=== PATIENT | female | born 1985 | race African-American/Black ===

== ENCOUNTER 2017-04-09 08:10 | Observation (INO) ==
[2017-04-09] MEDS ORDERED: LACTATED RINGERS 1,000 ML IV STA (08:28)
[2017-04-09] MEDS ORDERED: ONDANSETRON 4 MG/2 ML VIAL IV STA (08:28)
[2017-04-09] MEDS ORDERED: HYDROmorphone 2 MG/1 ML VIAL IV STA (08:28)
[2017-04-09] MEDS ORDERED: HYDROmorphone 2 MG/1 ML VIAL ONE ×3 (08:32→16:02)
[2017-04-09] MEDS ORDERED: ONDANSETRON 4 MG/2 ML VIAL ONE ×3 (08:33→16:02)
[2017-04-09 08:35] LABS: Basophils % 0.3 % (0.0-0.8); Eosinophils # 0.1 10*3/uL (0.0-0.87); Eosinophils % 0.8 % (0.00-10.9); Hematocrit 38.4 VOL% (35.7-47.0); Hemoglobin 12.7 GM/DL (12.0-16.0); Immature Granulocytes % 1.2 %; Immature Granulocytes Absolute 0.14 #; Lymphocytes # 2.7 10*3/uL (1.4-4.0); Lymphocytes % 22.9 % (21.3-54.2); Mean Corpuscular HGB Conc 33.1 GM/DL (32-36); Mean Corpuscular Hemoglobin 27 PG (27-34); Mean Corpuscular Volume 80.3 FL (87-102); Mean Platelet Volume 9.7 FL (9.6-12.0); Monocytes # 0.7 10*3/uL (0.11-0.8); Monocytes % 6.2 % (1.7-12.7); Neutrophils # 8.1 10*3/uL (1.4-7.4); Neutrophils % 68.6 % (38.7-73.9); Platelet Count 327 T/CUMM (130-400); Red Blood Count 4.78 MC/CUMM (3.8-5.5); White Blood Count 11.8 T/CUMM (4-12)
[2017-04-09 08:42] LABS: PT Patient Result 10.6 SECS
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
[2017-04-09 08:54] LABS: Alanine Aminotransferase 23 U/L (13-56); Albumin 3.7 G/DL (3.4-5.0); Alkaline Phosphatase 94 U/L (45-117); Amylase 51 U/L (25-115); Aspartate Amino Transferase 15 U/L (0-37); Blood Urea Nitrogen 10 MG/DL (7-18); Calcium 9.3 MG/DL (8.5-10.1); Glucose 116 MG/DL (74-106); Osmolality,Calculated 278.4 MOS/KG (273-304); Potassium 3.9 MMOL/L (3.5-5.1); Sodium 140 MMOL/L (136-145); Total Protein 7.1 G/DL (6.4-8.3)
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
--- NOTE | 2017-04-09 09:54 | CT Report ---
Exam: CT scan of brain without contrast Date: 04/09/2017 Indication: Head injury Comparison: 05/16/2016 Patient's classification: Emergency department Technical: Images were obtained from the skull base to the vertex without the use of intravenous contrast. Dose reduction was performed with decreasing kv and mA and automated exposure Total DLP: 460.6 mGy*cm Findings: Extensive soft tissue laceration with some debris present over the frontal calvarium and laceration present. The brainstem, cerebellum and cerebral hemispheres are intact. The ventricles are unremarkable. The paranasal sinuses globes and sella are intact. Impression: 1. Extensive soft tissue injury over the frontal right parietal scalp with some foreign body debris present. 2. No acute intracranial hemorrhage infarction or mass effect. PROCEDURE INTERPRETED AT [facility] DEPARTMENT OF RADIOLOGY Final Report Signed by: Dr. Eleazar Coker
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
--- NOTE | 2017-04-09 10:02 | CT Report ---
Exam:CT chest w con Date:04/09/2017 8:29 AM Indication: Chest Abdominal pelvic pain injury Comparison: None Technical: Images were obtained from the thoracic inlet through the lung bases with 100 cc of contrast. Axial sagittal and coronal imaging was available for review. Dose reduction was performed with decreasing kv and mA and automated exposure Total DLP: 4505.4 mGy*cm Findings: The thyroid gland, trachea and esophagus are unremarkable. The anterior middle and posterior mediastinum are intact. The heart and pulmonary artery are unremarkable. Aorta is unremarkable. The lungs are clear without infiltrates or effusions. The bony structures are unremarkable within the region of the ribs and sternum thoracic spine will be described separately Impression: 1. No obvious pneumothorax pulmonary contusion focal mass lesion Exam: CT abdomen pelvis w con Date: 04/09/2017 8:29 AM Comparison: None Indication: Chest abdomen pelvic pain Total DLP: As above mGy*cm Technical: No oral contrast was administered Images were obtained from the lung bases to the iliac crest continuation through the pelvis with 100 cc of Omnipaque 350 with axial sagittal coronal imaging available for review. Dose reduction was performed with decreasing kv and mA and automated exposure Findings: Liver and Spleen: Unremarkable Gallbladder and Pancreas: Gallbladder is slightly distended. The pancreas is unremarkable. Adrenals: Unremarkable Kidneys: Both kidneys are equally perfused and demonstrate no evidence for obstructive uropathy. Stomach: Incomplete distended with air fluid and debris Retroperitoneum: No enlarged lymph nodes. Aorta and IVC: No obvious aneurysm aorta vessels and IVC are unremarkable. Bowel and Mesentery: Phleboliths present right true pelvis with small nodes in the right lower quadrant. No evidence of appendicitis however noted. No free fluid present. Pelvis: Bladder: Incompletely distended with small amount of fluid in the bladder. Fluid: Trace of free fluid in the deep pelvis. Lymph nodes: No enlarged lymph nodes. Pelvic organs: Uterus is midline with some degenerative leiomyoma changes suspected. There appears be a left ovarian cyst suspected not otherwise clarified left adnexal region. Osseous structures: The bony pelvis is unremarkable. The lumbosacral spine will be described separately. Impression: 1. Trace of free fluid in the deep pelvis. 2. No obvious pneumoperitoneum 3. Left ovarian cyst present. PROCEDURE INTERPRETED AT [facility] [place] DEPARTMENT OF RADIOLOGY Final Report Signed by: Dr. Eleazar Coker
--- NOTE | 2017-04-09 10:07 | CT Report ---
Exam: CT lumbar spine wo con Date: 04/09/2017 8:29 AM Comparison: None Indication: Lumbar spine pain injury Total DLP: Described with CT chest abdomen pelvis mGy*cm Technical: Axial sagittal and coronal images were available for review without use of intravenous contrast through the lumbosacral spine. Dose reduction was performed with decreasing kv and mA and automated exposure Findings: T12/L1: No specific facet arthropathy..The exam reveals no obvious bulging or herniation L1/2: No significant facet arthropathy. The exam reveals no obvious bulging or herniation. L2/3: No significant facet arthropathy. The exam reveals no obvious bulging or herniation. L3/4: No significant facet arthropathy. The exam reveals no obvious bulging or herniation. L4/5: No significant facet arthropathy. The exam reveals no obvious bulging or herniation L5/S1: No significant facet arthropathy. The exam reveals no obvious bulging herniation. Incidentally noted phleboliths in the right abdomen . The sacrum and SI joints iliac wings are unremarkable. The bony structures reveal no obvious abnormalities in the vertebral body heights pedicles and transverse processes are posterior elements are adjacent ribs . Impression: 1. No obvious fractures of the lumbosacral spine. PROCEDURE INTERPRETED AT [facility] DEPARTMENT OF RADIOLOGY Final Report Signed by: Dr. Eleazar Coker
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
--- NOTE | 2017-04-09 10:08 | XRay Report ---
Exam: XR chest 1V portable Date: 04/09/2017 8:28 AM Indication: Chest pain Comparison: 05/24/2014 Technical: AP Findings: Supine images obtained. This slightly accentuates cardiac silhouette. The heart lungs mediastinum and bony structures are intact. Impression: 1. No acute cardiothoracic pathology. PROCEDURE INTERPRETED AT [facility] DEPARTMENT OF RADIOLOGY Final Report Signed by: Dr. Eleazar Coker
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
[2017-04-09 10:49] LABS: Apearance,Urine CLEAR (Clear); Bilirubin,Urine Negative (Negative); Blood, Urine Negative (Negative); Glucose,Urine (UA) Negative (Negative); Ketones,Urine Negative (Negative); Mucus,Urine Occasional /LPF (Occasional); Nitrite,Urine Negative (Negative); Protein,Urine Negative; RBC,Urine 1 /HPF (0-4); Squamous Epithelial Cell,Urine Occasional /HPF (0-10); Urine Color Yellow (Yellow); Urine Specific Gravity 1.048 (1.001-1.035); WBC,Urine <1 /HPF (0-6)
[2017-04-09 10:56] LABS: Barbiturates Screen,Urine Negative (Negative); Benzodiazepines Screen,Urine Negative (Negative); Opiate Screen,Urine Positive (Negative); Phencyclidine Screen,Urine Negative (Negative)
[2017-04-09 10:57] LABS: Cannabinoid Screen,Urine Negative (Negative)
[2017-04-09] MEDS ORDERED: METOCLOPRAMIDE 10 MG/2 ML VIAL ONE (12:42)
[2017-04-09] MEDS ORDERED: ceFAZolin 1,000 MG VIAL ONE (12:42)
[2017-04-09] MEDS ORDERED: SODIUM CHLORIDE 0.9% 0 ML IV ONE (12:43)
[2017-04-09] MEDS ORDERED: FAMOTIDINE 20 MG TABLET ONE (12:43)
[2017-04-09] MEDS ORDERED: HYDROmorphone 2 MG/1 ML VIAL IV ONE (12:46)
[2017-04-09] MEDS ORDERED: FAMOTIDINE 20 MG TABLET PO ONE (12:46)
[2017-04-09] MEDS ORDERED: METOCLOPRAMIDE 10 MG/2 ML VIAL IV ONE (12:46)
[2017-04-09] MEDS: LACTATED RINGERS 1,000 ML IV SCH (14:05)
[2017-04-09] MEDS ORDERED: TISSUE ADHESIVE 1 EACH APPLICATOR TOP ONE (14:54)
--- NOTE | 2017-04-09 15:29 | Anesthesia Post-Op ---
Anesthesia Post OP - Post Ansesthetic Evaluation Patient seen in post op: Yes Resp: within normal limits CV: within normal limits Mental: within normal limits Temp: within normal limits [id number]: within normal limits Nausea and Vomiting: within normal limits Pain: within normal limits
[2017-04-09] MEDS ORDERED: MIDAZOLAM 2 MG/2 ML VIAL ONE (15:34)
[2017-04-09] MEDS ORDERED: SEVOFLURANE 1 UNIT/15 MINUTE INH ONE (15:34)
[2017-04-09] MEDS ORDERED: PROPOFOL 200 MG/20 ML VIAL IV ONE (15:34)
[2017-04-09] MEDS ORDERED: fentaNYL 100 MCG/2 ML VIAL ONE (15:34)
[2017-04-09] MEDS ORDERED: GLYCOPYRROLATE 0.4 MG/2 ML VIAL ONE (15:34)
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
[2017-04-09] MEDS ORDERED: ONDANSETRON 4 MG/2 ML VIAL IV PRN ×2 (15:48→16:53)
[2017-04-09] MEDS ORDERED: HYDROmorphone 2 MG/1 ML VIAL IV PRN (15:48)
[2017-04-09] MEDS ORDERED: PROMETHAZINE 25 MG/1 ML VIAL IM PRN (16:53)
[2017-04-09] MEDS: KETOROLAC 15 MG/1 ML VIAL IV SCH ×2 (17:54→22:55)
[2017-04-09] MEDS: HYDROmorphone 2 MG/1 ML VIAL IV PRN (22:54)
[2017-04-10] MEDS: LACTATED RINGERS 1,000 ML IV SCH (02:35)
[2017-04-10] MEDS: KETOROLAC 15 MG/1 ML VIAL IV SCH ×4 (05:10→22:09)
[2017-04-10 06:01] LABS: Basophils % 0.3 % (0.0-0.8); Eosinophils # 0.1 10*3/uL (0.0-0.87); Eosinophils % 0.8 % (0.00-10.9); Hemoglobin 10.4 GM/DL (12.0-16.0); Immature Granulocytes % 0.6 %; Immature Granulocytes Absolute 0.06 #; Lymphocytes # 2.1 10*3/uL (1.4-4.0); Lymphocytes % 19.9 % (21.3-54.2); Mean Corpuscular HGB Conc 32.5 GM/DL (32-36); Mean Corpuscular Hemoglobin 26 PG (27-34); Mean Corpuscular Volume 79.8 FL (87-102); Mean Platelet Volume 10.3 FL (9.6-12.0); Monocytes % 10.1 % (1.7-12.7); Neutrophils % 68.3 % (38.7-73.9); Platelet Count 270 T/CUMM (130-400); Red Blood Count 4.01 MC/CUMM (3.8-5.5); Red Cell Distribution Width 15.9 % (9.3-17.3); White Blood Count 10.3 T/CUMM (4-12)
[2017-04-10 07:18] LABS: Osmolality,Calculated 274.5 MOS/KG (273-304); Potassium 3.8 MMOL/L (3.5-5.1)
[2017-04-10] MEDS: ENOXAPARIN 40 MG/0.4 ML SYRINGE SUBCUT SCH (09:03)
[2017-04-10] MEDS: HYDROmorphone 2 MG/1 ML VIAL IV PRN ×3 (09:04→19:53)
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
--- NOTE | 2017-04-10 10:46 | XRay Report ---
Exam: XR chest 1V Date: 04/10/2017 Indication: Pneumomediastinum Comparison: Routine chest 04/09/2017 Technical: AP upright semierect post swallow study. Findings: No obvious pneumomediastinum clearly demonstrated. Minimal atelectatic change in the left base. The heart is normal in size. The exam reveals no contrast extravasation otherwise noted within the chest cavity. No obvious pleural effusions. Ribs are otherwise intact. Impression: 1. Borderline cardiac enlargement without obvious extravasation of contrast with atelectatic change within the left base. PROCEDURE INTERPRETED AT [facility] Final Report Signed by: Dr. Eleazar Coker
--- NOTE | 2017-04-10 10:50 | Fluoroscopy Report ---
Exam: FL esophagram w gastrografin Date: 04/10/2017 9:33 AM Indication: Pneumomediastinum Comparison: None Findings: 1 minute and 41 seconds and 37 fluoroscopic images were obtained with Gastrografin. The vallecula and piriform recesses are unremarkable. Esophagus reveals no obvious rent or tear with normal distention of the esophagus. No definite extravasation of contrast noted. Small hiatal hernia is present distally. Impression: 1. No extravasation of contrast on today's examination no obvious subcutaneous or mediastinal air otherwise clearly delineated at this time. Repeat CT imaging may be beneficial if further evaluation is warranted PROCEDURE INTERPRETED AT [facility] DEPARTMENT OF RADIOLOGY Final Report Signed by: Dr. Eleazar Coker
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
[2017-04-11] MEDS: KETOROLAC 15 MG/1 ML VIAL IV SCH ×4 (05:50→23:45)
[2017-04-11] MEDS: ENOXAPARIN 40 MG/0.4 ML SYRINGE SUBCUT SCH (09:28)
[2017-04-11] MEDS: HYDROmorphone 2 MG/1 ML VIAL IV PRN ×2 (09:29→21:10)
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
[2017-04-12] MEDS: HYDROmorphone 2 MG/1 ML VIAL IV PRN ×2 (01:51→23:04)
[2017-04-12] MEDS: KETOROLAC 15 MG/1 ML VIAL IV SCH ×2 (05:52→12:13)
[2017-04-12] MEDS: ENOXAPARIN 40 MG/0.4 ML SYRINGE SUBCUT SCH (08:53)
--- NOTE | 2017-04-12 09:44 | Event Note ---
04/12/2017 Patient is afebrile and wound care is continued to the scalp and the arm. Patient now has her back brace and physical therapy has started working with her to get her functional. It would be nice to get the patient additional rehab although her insurance status may prevent that from occurring. Will investigate and see if there is some options for her at some point.
[2017-04-13 05:21] LABS: Basophils % 0.4 % (0.0-0.8); Eosinophils # 0.2 10*3/uL (0.0-0.87); Eosinophils % 2.5 % (0.00-10.9); Hematocrit 29.6 VOL% (35.7-47.0); Hemoglobin 9.6 GM/DL (12.0-16.0); Immature Granulocytes % 0.3 %; Immature Granulocytes Absolute 0.02 #; Lymphocytes # 2.8 10*3/uL (1.4-4.0); Lymphocytes % 38.2 % (21.3-54.2); Mean Corpuscular HGB Conc 32.4 GM/DL (32-36); Mean Corpuscular Hemoglobin 26 PG (27-34); Mean Corpuscular Volume 80.9 FL (87-102); Mean Platelet Volume 10.3 FL (9.6-12.0); Monocytes # 0.7 10*3/uL (0.11-0.8); Monocytes % 9.2 % (1.7-12.7); Neutrophils # 3.6 10*3/uL (1.4-7.4); Neutrophils % 49.4 % (38.7-73.9); Platelet Count 300 T/CUMM (130-400); Red Blood Count 3.66 MC/CUMM (3.8-5.5); Red Cell Distribution Width 15.7 % (9.3-17.3); White Blood Count 7.3 T/CUMM (4-12)
[2017-04-13 06:00] LABS: Osmolality,Calculated 282.1 MOS/KG (273-304); Potassium 3.9 MMOL/L (3.5-5.1)
[2017-04-13] MEDS: ENOXAPARIN 40 MG/0.4 ML SYRINGE SUBCUT SCH (09:23)
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
[2017-04-13 15:38] VITALS: BP 118/58
== END 2017-04-13 16:05 | disposition home health service (06) ==
LOC: EDUNIT# → EDBD → N.ED 08:10 → N.3E 10:55 → N.SDSINP 10:55 → N.ED 11:19 → N.SDSINP 11:20 → N.3E 11:45
PROVIDERS: ADMIT Surgery; ATTEND Surgery

== ENCOUNTER 2020-03-14 10:58 | Inpatient (IN) ==
[~2020-03-14 10:58] MED LIST: LIDOCAINE 2% 5 ML VIAL ONE; propofoL 200 MG/20 ML VIAL IV ONE
[2020-03-14 11:47] LABS: Basophils % 0.2 % (0.0-0.8); Eosinophils # 0.1 10*3/uL (0.0-0.87); Eosinophils % 1.5 % (0.00-10.9); Immature Granulocytes Absolute 0.14 #; Lymphocytes % 42.6 % (21.3-54.2); Mean Corpuscular HGB Conc 31.5 GM/DL (32-36); Mean Corpuscular Volume 95.4 FL (87-102); Monocytes % 5.9 % (1.7-12.7); NRBC # 0.13 10*3/uL; Neutrophils % 46.8 % (38.7-73.9); Platelet Count 147 T/CUMM (130-400); Red Blood Count 1.73 MC/CUMM (3.8-5.5); Red Cell Distribution Width 31.6 % (9.3-17.3); White Blood Count 4.7 T/CUMM (4-12)
[2020-03-14 11:49] LABS: Hematocrit 16.5 VOL% (35.7-47.0); Hemoglobin 5.2 GM/DL (12.0-16.0)
[2020-03-14 11:57] LABS: PT Patient Result 10.7 SECS (9.8-11.9); Partial Thromboplastin Time 24.3 SECS (23.9-33.8)
[2020-03-14] MEDS: SODIUM CHLORIDE 0.9% 1,000 ML IV SCH ×2 (12:00→23:01)
[2020-03-14] MEDS ORDERED: PANTOPRAZOLE 40 MG VIAL IV ONE (12:04)
[2020-03-14 12:06] LABS: Atypical Lymphocytes Few; Eosinophils 1 % (0-10); Hypochromasia 2+; Lymphocytes 45 % (20-55); Microcytosis 1+; Nucleated Red Blood Cells 1 (0-5); Ovalocytes Slight; Segmented Neutrophils 53 % (50-85); Total Cells Counted 100
[2020-03-14 12:09] LABS: % Iron Saturation 48.1 % (18-50)
[2020-03-14] MEDS ORDERED: PANTOPRAZOLE 40 MG VIAL IV STA (12:12)
[2020-03-14 12:31] LABS: Albumin 3.5 G/DL (3.4-5.0); Calcium 8.9 MG/DL (8.5-10.1); Total Protein 7.1 G/DL (6.4-8.3)
[2020-03-14] MEDS ORDERED: ACETAMINOPHEN 325 MG TABLET PO PRN (13:14)
[2020-03-14] MEDS ORDERED: DOCUSATE SODIUM 100 MG CAPSULE PO PRN (13:14)
[2020-03-14] MEDS ORDERED: SODIUM CHLORIDE 0.9% 1,000 ML IV PRN (13:35)
[2020-03-14 13:55] LABS: Risk Ratio 3.22; Thyroid Stimulating Hormone 1.27 uIU/ml (0.358-3.74); VLDL CHOLESTEROL 18.2 MG/DL
[2020-03-14 14:38] LABS: Hepatitis B Core IgM Quant 0.19 Index; Hepatitis B Surface Ag Quant 0.56 Index; Hepatitis B Surface Ag Result Negative (Negative); Hepatitis C Virus Ab Quant 0.08 Index; Hepatitis C Virus Ab Result Negative (Negative)
[2020-03-14] MEDS: CYANOCOBALAMIN 1000 MCG/1 ML VIAL IM SCH (16:10)
[2020-03-14 17:34] LABS: Apearance,Urine CLOUDY (Clear); Bacteria,Urine Occasional /HPF (Few); Bilirubin,Urine Negative (Negative); Blood, Urine Small mg/dL (Negative); Glucose,Urine (UA) Negative (Negative); Ketones,Urine Negative (Negative); Mucus,Urine Moderate /LPF (Occasional); Nitrite,Urine Positive (Negative); Protein,Urine Negative; RBC,Urine 11 /HPF (0-4); Squamous Epithelial Cell,Urine Occasional /HPF (0-10); Urine Color Amber (Yellow); Urine Specific Gravity 1.015 (1.001-1.035); WBC,Urine 99 /HPF (0-6)
[2020-03-14] MEDS: PANTOPRAZOLE 40 MG TABLET PO SCH (20:07)
[2020-03-14] MEDS: FERROUS SULFATE 325 MG TABLET PO SCH (20:07)
[2020-03-14 23:31] LABS: Hematocrit 21.6 VOL% (35.7-47.0); Hemoglobin 7.1 GM/DL (12.0-16.0)
[2020-03-15 05:47] LABS: Basophils % 0.4 % (0.0-0.8); Eosinophils # 0.1 10*3/uL (0.0-0.87); Eosinophils % 1.9 % (0.00-10.9); Hematocrit 21.5 VOL% (35.7-47.0); Hemoglobin 6.9 GM/DL (12.0-16.0); Immature Granulocytes % 4.8 %; Immature Granulocytes Absolute 0.23 #; Lymphocytes # 2.3 10*3/uL (1.4-4.0); Lymphocytes % 47.5 % (21.3-54.2); Mean Corpuscular HGB Conc 32.1 GM/DL (32-36); Mean Corpuscular Volume 88.1 FL (87-102); Monocytes % 5.6 % (1.7-12.7); NRBC # 0.14 10*3/uL; Neutrophils % 39.8 % (38.7-73.9); Red Blood Count 2.44 MC/CUMM (3.8-5.5); Red Cell Distribution Width 28.6 % (9.3-17.3); White Blood Count 4.8 T/CUMM (4-12)
[2020-03-15 05:58] LABS: Platelet Count 108 T/CUMM (130-400)
[2020-03-15 06:27] LABS: Albumin 3.1 G/DL (3.4-5.0); Bilirubin,Total 1.1 MG/DL (0.2-1.0); Calcium 8.2 MG/DL (8.5-10.1); Lymphocytes 46 % (20-55); Nucleated Red Blood Cells 3 (0-5); Osmolality,Calculated 275.4 MOS/KG (273-304); Segmented Neutrophils 51 % (50-85); Total Cells Counted 100; Total Protein 6.1 G/DL (6.4-8.3)
[2020-03-15 06:28] LABS: Atypical Lymphocytes Few; Platelet Estimate Decreased; Reactive Lymphocytes Few
[2020-03-15 06:29] LABS: Hypochromasia 2+; Microcytosis 2+; Ovalocytes 1+; Tear Drop Cells Few
[2020-03-15] MEDS: SODIUM CHLORIDE 0.9% 1,000 ML IV SCH (07:06)
[2020-03-15] MEDS ORDERED: SODIUM CHLORIDE 0.9% 1,000 ML IV PRN ×2 (07:37→08:19)
[2020-03-15] MEDS: CYANOCOBALAMIN 1000 MCG/1 ML VIAL IM SCH (09:54)
[2020-03-15] MEDS: FERROUS SULFATE 325 MG TABLET PO SCH ×2 (14:08→21:04)
[2020-03-15] MEDS: PANTOPRAZOLE 40 MG TABLET PO SCH ×2 (14:09→21:04)
[2020-03-15] MEDS: LACTATED RINGERS 1,000 ML IV SCH (14:30)
[2020-03-15] MEDS: CIPROFLOXACIN 500 MG TABLET PO SCH (21:04)
[2020-03-15 21:16] LABS: Hematocrit 29.8 VOL% (35.7-47.0); Hemoglobin 9.6 GM/DL (12.0-16.0)
[2020-03-16] MEDS: SODIUM CHLORIDE 0.9% 1,000 ML IV SCH ×3 (05:30→15:58)
[2020-03-16 07:11] LABS: Basophils % 0.5 % (0.0-0.8); Eosinophils # 0.1 10*3/uL (0.0-0.87); Eosinophils % 1.6 % (0.00-10.9); Hematocrit 27.9 VOL% (35.7-47.0); Hemoglobin 8.9 GM/DL (12.0-16.0); Immature Granulocytes % 5.6 %; Immature Granulocytes Absolute 0.31 #; Lymphocytes # 2.9 10*3/uL (1.4-4.0); Lymphocytes % 51.6 % (21.3-54.2); Mean Corpuscular HGB Conc 31.9 GM/DL (32-36); Mean Corpuscular Volume 89.7 FL (87-102); Monocytes % 7.5 % (1.7-12.7); NRBC # 0.39 10*3/uL; Neutrophils % 33.2 % (38.7-73.9); Platelet Count 100 T/CUMM (130-400); Red Blood Count 3.11 MC/CUMM (3.8-5.5); White Blood Count 5.6 T/CUMM (4-12)
[2020-03-16 07:28] LABS: Albumin 2.9 G/DL (3.4-5.0); Bilirubin,Total 1.1 MG/DL (0.2-1.0); Calcium 8.1 MG/DL (8.5-10.1); Osmolality,Calculated 276.3 MOS/KG (273-304); Total Protein 5.7 G/DL (6.4-8.3)
[2020-03-16] MEDS: CYANOCOBALAMIN 1000 MCG/1 ML VIAL IM SCH (08:59)
[2020-03-16] MEDS: PANTOPRAZOLE 40 MG TABLET PO SCH (09:00)
[2020-03-16] MEDS: FERROUS SULFATE 325 MG TABLET PO SCH (09:00)
[2020-03-16] MEDS: CIPROFLOXACIN 500 MG TABLET PO SCH (09:00)
[2020-03-16] MEDS: LACTATED RINGERS 1,000 ML IV SCH (09:02)
[2020-03-16 09:53] LABS: Band Neutrophils 1 % (0-10); Eosinophils 2 % (0-10); Hypochromasia 2+; Lymphocytes 59 % (20-55); Nucleated Red Blood Cells 5 (0-5); Ovalocytes Few; Platelet Estimate Adequate; Polychromasia Slight; Schistocytes Few; Segmented Neutrophils 32 % (50-85); Total Cells Counted 100
[2020-03-16 09:54] LABS: Anisocytosis 2+; Spherocytes Few
[2020-03-16 12:21] VITALS: BP 95/52
== END 2020-03-16 14:53 | disposition home or self-care (01) | DRG 812 ==
LOC: N.ED 10:58 → SUATTDRO 12:52 → N.EDINP 12:52 → N.TELES 14:02
PROVIDERS: ADMIT Emergency Medicine; ATTEND Internal Medicine